=== PATIENT | male | born 1975 | race Caucasian/White ===

== ENCOUNTER 2018-11-10 04:35 | Emergency (ER) | payer SELFPAY ==
[2018-11-10] MEDS ORDERED: HYDROMORPHONE HCL INJ/PF 2 MG/ML AMPULE IM ONE (04:59)
--- NOTE | 2018-11-10 05:03 | ER Document Report ---
ED General - General Chief Complaint: Fall Stated Complaint: FALL Time Seen by Provider: 11/10/18 04:53 Notes: Patient is a pleasant 43-year-old male presents with complaint of pain in his back and also his right wrist. Patient was fell initially on his low back and then slammed backwards and hit his upper back and neck. He has pain all the way up and down the spine. No weakness or numbness into his hands or feet or legs. No loss of bowel control. No inability to urinate. Patient does also complain of some pain in the right wrist since the fall. No pain to the hand or forearm. Patient does have previous history of spine surgery over his lumbar spine. TRAVEL OUTSIDE OF THE [place] IN LAST 30 DAYS: No - Related Data Allergies/Adverse Reactions: No Known Allergies Allergy (Unverified 11/10/18 05:03) Past Medical History - Social History Smoking Status: Current Some Day Smoker Frequency of alcohol use: None Drug Abuse: None Family History: Reviewed & Not Pertinent Patient has suicidal ideation: No Patient has homicidal ideation: No Renal/ Medical History: Denies: Hx Peritoneal Dialysis Review of Systems - Review of Systems Notes: My Normal Review Basic REVIEW OF SYSTEMS: CONSTITUTIONAL : Denies fever, chills, or sweats. Denies recent illness. MUSCULOSKELETAL: Neck and back pain SKIN: Denies rash or skin lesions. NEUROLOGICAL: Denies altered mental status or loss of consciousness. Denies headache. Denies weakness or paralysis or loss of use of either side. Denies problems with gait or speech. Denies sensory or motor loss. ALL OTHER SYSTEMS REVIEWED AND NEGATIVE. Physical Exam - Vital signs Vitals: Temp Pulse Resp BP Pulse Ox 97.6 F 72 20 147/91 H 100 11/10/18 04:40 11/10/18 04:40 11/10/18 04:40 11/10/18 04:40 11/10/18 04:40 - Notes Notes: General Appearance: Well nourished, alert, cooperative, no acute distress, moderate obvious discomfort. Vitals: reviewed, See vital signs table. Head: no swelling or tenderness to the head Eyes: PERRL, EOMI, Conjuctiva clear Mouth: No decreasd moisture Neck: Supple, midline cervical spine tenderness over C4-C6. No step-offs or deformities. Back: Tenderness to palpation over upper thoracic spine and also over lumbar spine. No step-offs or deformities. Extremities: strength 5/5 in all extremities, good pulses in all extremities, no swelling or tenderness in the extremities except of pain to palpation over the right wrist. No scaphoid tenderness. Pain is mostly in the ulnar aspect of the wrist., no edema. Skin: warm, dry, appropriate color, no rash Neuro: speech clear, oriented x 3, normal affect, responds appropriately to questions. Cranial nerves II through XII are intact. Distal sensation intact. Patient moves all extremities without difficulty. Good strength in all 4 extremities. Course - Re-evaluation Re-evalutation: 11/10/18 06:[address] scan did not show any concerning findings. She looks well and feels safe to be discharged home. He has no weakness or numbness into his legs, no loss of bowel control, no urinary retention, no signs of central cord impingement on exam. I encouraged him return to ER if he has any this concerning symptoms as mentioned above. I encouraged him to take ibuprofen and Tylenol for pain as well as prescribed muscle relaxers. Patient agrees with plan will be discharged home. Dictation of this chart was performed using voice recognition software; therefore, there may be some unintended grammatical errors. - Vital Signs Vital signs: Temp Pulse Resp BP Pulse Ox 97.6 F 72 20 147/91 H 100 11/10/18 04:40 11/10/18 04:40 11/10/18 04:40 11/10/18 04:40 11/10/18 04:40 Discharge - Discharge Clinical Impression: Cervical pain (neck) Back pain Qualifiers: Back pain location: low back pain Chronicity: acute Back pain laterality: midline Sciatica presence: without sciatica Qualified Code(s): M54.5 - Low back pain Condition: Good Disposition: HOME, SELF-CARE Additional Instructions: Your CT scans did not show any evidence of fracture to the spine. I suspect you are having re-exacerbation of your chronic back pain due to your history of your protruding disks. At this time will discharge home with muscle relaxers. Please take the medications as prescribed. Please do not lift anything heavy over the next several days. Please still get up and walk around so that your back does not become stiff. Please follow-up with your doctor and discuss possible referral to physical therapy as this may help prevent re-exacerbations of your pain. Please take ibuprofen 400 mg every 6 hours with food. Please return to the ER immediately if you develops loss of control of your bowel function, inability to urinate, or weakness or numbness into your legs. Prescriptions: Metaxalone [Skelaxin 800 mg Tablet] 800 mg PO ASDIR PRN #20 tablet PRN Reason: Forms: Return to Work
--- NOTE | 2018-11-10 05:47 | RADIOLOGY REPORT (SQ) ---
EXAM DESCRIPTION: XR WRIST 3 OR MORE VIEWS BILATERAL COMPLETED DATE/TME: 11/10/2018 05:00 CLINICAL HISTORY: 43 years, Male, trauma COMPARISON: None. NUMBER OF VIEWS: Four TECHNIQUE: Four views of the right wrist LIMITATIONS: None. FINDINGS: No acute fracture or dislocation. The carpal bones appear intact. No large soft tissue swelling. No radiopaque foreign body. IMPRESSION: No acute fracture or dislocation copyright 2010 [employer]- All Rights Reserved
--- NOTE | 2018-11-10 06:22 | RADIOLOGY REPORT (SQ) ---
EXAM DESCRIPTION: CT CERVICAL SPINE WITHOUT IV CONTRAST COMPLETED DATE/TME: 11/10/2018 05:00 CLINICAL HISTORY: 43 years, Male, trauma COMPARISON: None. TECHNIQUE: Axial CT images of the cervical spine were obtained without contrast. Sagittal and coronal reformats were performed. [facility] 519 Images stored on PACS. All CT scanners at this facility use dose modulation, iterative reconstruction, and/or weight based dosing when appropriate to reduce radiation dose to as low as reasonably achievable (ALARA). [facility]: Dose Right [facility]: CareDose [facility]: Dose Right [facility]: Teradose 4D [facility]: [employer] LIMITATIONS: None. FINDINGS: The alignment of the cervical spine is satisfactory. There is no acute fracture or subluxation. The vertebral heights are maintained. The odontoid process is intact. The craniocervical junction is intact. The prevertebral soft tissues are normal. There is multilevel spondylosis with disc space narrowing and marginal osteophytes. There is moderate to severe left-sided neural foraminal narrowing at C3-C4 and C5-C6. IMPRESSION: No acute fracture or subluxation of the cervical spine. TECHNICAL DOCUMENTATION: Quality ID # 436: Final reports with documentation of one or more dose reduction techniques (e.g., Automated exposure control, adjustment of the mA and/or kV according to patient size, use of iterative reconstruction technique) copyright 2010 [employer]- All Rights Reserved
--- NOTE | 2018-11-10 06:24 | RADIOLOGY REPORT (SQ) ---
EXAM DESCRIPTION: CT LUMBAR SPINE WITHOUT IV CONTRAST COMPLETED DATE/TME: 11/10/2018 05:00 CLINICAL HISTORY: 43 years, Male, trauma COMPARISON: None. TECHNIQUE: Axial CT images of the lumbar spine were obtained without contrast. Sagittal and coronal reformats were performed. [facility] [id number] Images stored on PACS. All CT scanners at this facility use dose modulation, iterative reconstruction, and/or weight based dosing when appropriate to reduce radiation dose to as low as reasonably achievable (ALARA). [facility]: Dose Right [facility]: CareDose [facility]: Dose Right [facility]: Teradose 4D [facility]: [employer] LIMITATIONS: None. FINDINGS: The alignment of the lumbar spine is satisfactory. There is no acute fracture or subluxation. The vertebral heights are maintained. The paraspinal soft tissues are normal. There is mild left-sided neural foraminal narrowing at L4-L5 and L5-S1. The remainder of the neural foramen and spinal canal appear widely patent. IMPRESSION: No acute fracture or subluxation. TECHNICAL DOCUMENTATION: Quality ID # 436: Final reports with documentation of one or more dose reduction techniques (e.g., Automated exposure control, adjustment of the mA and/or kV according to patient size, use of iterative reconstruction technique) copyright 2010 [employer]- All Rights Reserved
--- NOTE | 2018-11-10 06:26 | RADIOLOGY REPORT (SQ) ---
EXAM DESCRIPTION: CT THORACIC SPINE WITHOUT IV CONTRAST COMPLETED DATE/TME: 11/10/2018 05:00 CLINICAL HISTORY: 43 years, Male, trauma COMPARISON: None. TECHNIQUE: Axial CT images of the thoracic spine were obtained without contrast. Sagittal and coronal reformats were performed. [facility] [id number] Images stored on PACS. All CT scanners at this facility use dose modulation, iterative reconstruction, and/or weight based dosing when appropriate to reduce radiation dose to as low as reasonably achievable (ALARA). [facility]: Dose Right [facility]: CareDose [facility]: Dose Right [facility]: Teradose 4D [facility]: [employer] LIMITATIONS: None. FINDINGS: Alignment of the thoracic spine is satisfactory. There is no acute fracture or subluxation. The vertebral heights are maintained. There is mild multilevel spondylosis with mild disc space narrowing and small anterior osteophytes. The visualized portions of the lungs are clear. No rib fracture is identified. IMPRESSION: No acute fracture or subluxation involving the thoracic spine TECHNICAL DOCUMENTATION: Quality ID # 436: Final reports with documentation of one or more dose reduction techniques (e.g., Automated exposure control, adjustment of the mA and/or kV according to patient size, use of iterative reconstruction technique) copyright 2010 [employer]- All Rights Reserved
[2018-11-10 06:55] VITALS: BP 135/83
== END 2018-11-10 06:53 | disposition home or self-care (01) ==
LOC: ER 04:35
DX: M54.5 Low back pain (principal); M54.2 Cervicalgia; M25.531 Pain in right wrist; W18.2XXA Fall in (into) shower or empty bathtub, initial encounter; Z98.890 Other specified postprocedural states; F17.200 Nicotine dependence, unspecified, uncomplicated
CPT/HCPCS: 99284; 96372; 73110; 72125; 72128; 72131; J1170